=== PATIENT | female | born 1980 | race African-American/Black ===

== ENCOUNTER 2024-09-17 07:18 | Emergency (ER) | payer SELFPAY ==
[2024-09-17 07:29] VITALS: BP 134/80; PULSE 96; RESP 18; TEMP 37.4; O2SAT 100; BMI 39.4
--- NOTE | 2024-09-17 07:46 | ED.URI ---
HPI - URI/Sore Throat General Chief Complaint: Upper Respiratory Symptoms Stated Complaint: Congested, Sore throat, headache Time Seen by Provider: 09/17/24 07:41 Source: patient Mode of arrival: Ambulatory History of Present Illness HPI Narrative: 44-year-old female history of hypertension, presents with sinus pressure, headache, nasal drainage, nonproductive cough, fever, chills, body ache, and weakness for the past week unrelieved with OTC meds [id number]. No sick contacts, does not smoke, denies sob, beck, wheezing. Other than what is stated 14 point review of system is negative Related Data Previous Rx's Medication Instructions Recorded amoxicillin 875 mg-potassium 1 tab PO Q12H #14 tabs 09/17/24 clavulanate 125 mg tablet hydrocodone-homatropine 5 mg-1.5 5 ml PO Q6H PRN cough #473 mL 09/17/24 mg/5 mL oral syrup (Hycodan (with homatropine)) Review of Systems Review of Systems ROS Unobtainable: All systems reviewed & are unremarkable except as noted in HPI and below Patient History Social History Smoking Status: Never smoker Smoking Status: Never smoker Exam Narrative Exam Narrative: GENERAL: 44 year old patient appears stated age. Well-developed patient, in mild distress. HEAD: Atraumatic. Normocephalic. EYES: Pupils equal round and reactive. Extraocular motions intact. No scleral icterus. No injection or drainage. ENT: Nose without bleeding, purulent drainage. Throat without erythema, tonsillar hypertrophy or exudate. Airway patent. R max sinus TTP, purulent nasal drainage NECK: Trachea midline. Non tender CARDIOVASCULAR: Regular rate and rhythm without murmurs, gallops, or rubs. RESPIRATORY: Clear to auscultation. Breath sounds equal bilaterally. No wheezes, rales, or rhonchi. GASTROINTESTINAL: Abdomen soft, non-tender, nondistended. EXTREMITIES: No edema or joint tenderness. BACK: Nontender without deformity or crepitance. No flank tenderness. NEURO: AOx3. SKIN: No rash or erythema of visible areas Initial Vital Signs Initial Vital Signs: Vital Signs Temperature 99.3 F 09/17/24 07:29 Pulse Rate 96 H 09/17/24 07:29 Respiratory Rate 18 09/17/24 07:29 Blood Pressure 134/80 09/17/24 07:29 Pulse Oximetry 100 09/17/24 07:29 Oxygen Delivery Method Room Air 09/17/24 07:29 Course Vital Signs Vital signs: Vital Signs - 8 hr 09/17/24 07:29 Temperature 99.3 F Pulse Rate 96 H Respiratory Rate 18 Blood Pressure 134/80 Pulse Oximetry 100 Oxygen Delivery Method Room Air MDM - URI/Sore Throat MDM Narrative Medical decision making narrative: Patient will given Augmentin and Hycodan for prescription on discharge. Differential diagnosis includes COVID, flu, RSV, bacterial sinusitis, strep throat, pneumonia, bronchitis. Return with new or worsening symptoms Discharge Plan Departure Patient Disposition: Home Clinical Impression: Acute bacterial sinusitis Instructions: DI for Sinusitis Prescriptions: New amoxicillin-pot clavulanate 875-125 mg tablet 1 tab PO Q12H Qty: 14 0RF hydrocodone-homatropine [Hycodan (with homatropine)] 5-1.5 mg/5 mL syrup 5 ml PO Q6H PRN (Reason: cough) Qty: 473 0RF Stand Alone Forms: Patient Portal/API/Survey
== END 2024-09-17 08:10 | disposition home or self-care (01) ==
PROVIDERS: Emergency Provider Family Medicine
DX: J01.90 Acute sinusitis, unspecified (principal)
CPT/HCPCS: 99281